=== PATIENT | male | born 1960 | race Caucasian/White ===

== ENCOUNTER 2016-07-21 05:34 | Inpatient (IN) | payer OTHER ==
[~2016-07-21] VITALS: Ht 167.6 cm; Wt 83.9 kg
[2016-07-21] MEDS ORDERED: LACTATED RINGERS 1,000 ML IV SCH (06:30)
[2016-07-21] MEDS ORDERED: GENTAMICIN SULF 40MG/ML 2ML VIAL ONE (07:14)
[2016-07-21] MEDS ORDERED: BACITRACIN ZINC 15GM TUBE TOP ONE (07:14)
[2016-07-21] MEDS ORDERED: TRIAMCINOLONE ACETONIDE 40MG/ML 1ML VIAL ONE (07:14)
[2016-07-21] MEDS ORDERED: DEXAMETHASONE 4MG/ML 1ML VIAL ONE (07:14)
[2016-07-21] MEDS ORDERED: BUPIVACAINE HCL/PF 0.5% (5MG/ML) 10ML ONE (07:15)
[2016-07-21] MEDS ORDERED: LIDOCAINE HCL 1% 20ML VIAL (Pyxis) INJ ONE ×2 (07:15→08:17)
[2016-07-21] MEDS ORDERED: MIDAZOLAM HCL 2 MG/2 ML VIAL ONE (08:16)
[2016-07-21] MEDS ORDERED: CEFAZOLIN SODIUM 1000MG/VIAL ONE (08:17)
[2016-07-21] MEDS ORDERED: PROPOFOL 200MG/20ML VIAL IV ONE (08:17)
[2016-07-21] MEDS ORDERED: FENTANYL CITRATE/PF 50MCG/ML 2ML VIAL ONE (08:25)
[2016-07-21] MEDS ORDERED: ONDANSETRON HCL 4MG/2ML VIAL ONE (08:29)
[2016-07-21] MEDS ORDERED: SODIUM CHLORIDE 0.9% 1,000 ML IV SCH (09:06)
[2016-07-21] MEDS ORDERED: HYDROMORPHONE HCL/PF 2MG/ML CPJ IV PRN (09:15)
[2016-07-21] MEDS ORDERED: ONDANSETRON HCL 4MG/2ML VIAL IV PRN ×2 (09:15→10:30)
[2016-07-21] MEDS ORDERED: PHENYLEPHRINE HCL 10 MG/ML 1ML (IV VIAL) IV ONE (09:21)
[2016-07-21] MEDS ORDERED: AMLO1CAP5 PO (10:29)
[2016-07-21] MEDS ORDERED: DIPHENHYDRAMINE 50MG/ML VIAL IV PRN (10:30)
[2016-07-21] MEDS ORDERED: GUAIFENESIN 200MG/10ML SUGAR FREE UDC PO PRN (10:30)
[2016-07-21] MEDS ORDERED: DOCUSATE SODIUM 100MG CAPSULE PO PRN (10:30)
[2016-07-21] MEDS ORDERED: IPRATROPIUM/ALBUTEROL 0.5-3(2.5)MG/3ML NEB INH PRN (10:30)
[2016-07-21] MEDS ORDERED: MAGNESIUM/ALUMINUM HYDROXIDE/SIMETHICONE 30ML UDC PO PRN (10:30)
[2016-07-21] MEDS ORDERED: CLONIDINE 0.1MG TABLET PO PRN (10:30)
[2016-07-21] MEDS ORDERED: HYDROCODONE/ACETAMINOPHEN 10/325MG TABLET PO PRN (10:30)
[2016-07-21] MEDS ORDERED: ACETAMINOPHEN 325MG TABLET PO PRN (10:30)
[2016-07-21 11:00] VITALS: BP 124/84
[2016-07-21 11:20] VITALS: BP 127/84
[2016-07-21] MEDS ORDERED: ENOXAPARIN 40MG/0.4ML SYR SUBCUT SCH (12:00)
[2016-07-21] MEDS: MULTIVITAMINS,THER W-MINERALS TABLET PO SCH (12:52)
[2016-07-21] MEDS: AMLODIPINE 5MG TABLET PO SCH (12:53)
[2016-07-21] MEDS: BENAZEPRIL 10MG TABLET PO SCH (12:53)
[2016-07-21] MEDS: CEFAZOLIN 1000MG PREMIX 50 ML IV SCH ×2 (14:00→22:14)
[2016-07-21] MEDS ORDERED: CEFAZOLIN SODIUM 1000MG/VIAL IV SCH (14:00)
[2016-07-21] MEDS: SODIUM CHLORIDE 0.9% INJ 3ML FLUSH IVF SCH ×2 (14:03→22:14)
[2016-07-21 16:00] VITALS: BP 108/70
[2016-07-21 20:00] VITALS: BP 120/82
[2016-07-22] VITALS: BP 133/77
[2016-07-22] MEDS: HYDROMORPHONE HCL/PF 2MG/ML CPJ IV PRN ×2 (00:05→13:50)
[2016-07-22 04:00] VITALS: BP 129/78
[2016-07-22] MEDS: CEFAZOLIN 1000MG PREMIX 50 ML IV SCH (05:40)
[2016-07-22] MEDS: SODIUM CHLORIDE 0.9% INJ 3ML FLUSH IVF SCH (05:41)
[2016-07-22 08:00] VITALS: BP 126/83
[2016-07-22] MEDS: BENAZEPRIL 10MG TABLET PO SCH (09:11)
[2016-07-22] MEDS: MULTIVITAMINS,THER W-MINERALS TABLET PO SCH (09:12)
[2016-07-22] MEDS: AMLODIPINE 5MG TABLET PO SCH (09:58)
[2016-07-22 12:00] VITALS: BP 126/74
[2016-07-22 16:00] VITALS: BP 118/71
[2016-07-22 17:22] VITALS: BP 119/65
== END 2016-07-22 18:10 | disposition home or self-care (01) | DRG 505 ==
LOC: OR 05:34 → 6EST 05:35
PROVIDERS: ADMIT Podiatrist Foot & Ankle Surgery; ATTEND Podiatrist Foot & Ankle Surgery
PROC: 0SH Lower Joints, Insertion (ICD-10-PCS; 2016-07-21)
PROC: 0SNN0ZZ Release Left Metatarsal-Phalangeal Joint, Open Approach (ICD-10-PCS; 2016-07-21)
PROC: 0QBR0ZZ Excision of Left Toe Phalanx, Open Approach (ICD-10-PCS; 2016-07-21)
PROC: 0QBP0ZZ Excision of Left Metatarsal, Open Approach (ICD-10-PCS; principal; 2016-07-21 07:30)
DX: M21.612 Bunion of left foot (principal); M20.40 Other hammer toe(s) (acquired), unspecified foot; M19.071 Primary osteoarthritis, right ankle and foot; M20.5X2 Other deformities of toe(s) (acquired), left foot; M24.575 Contracture, left foot
CPT/HCPCS: 73630; 88304; 88311; 97116; 97162; J0690; J1100; J1170; J1580; J2250; J2370; J2405; J2704; J3010; J3301; J3490; J7120

== ENCOUNTER 2022-03-12 15:44 | Emergency (ER) | payer OTHER ==
[~2022-03-12] VITALS: Ht 167.6 cm; Wt 80.0 kg
[~2022-03-12 15:44] MED LIST: AMLO1CAP5 PO
[2022-03-12 15:50] VITALS: BP 160/83
[2022-03-12] MEDS ORDERED: FLUORESCEIN SODIUM 1MG/STRIP BOTHEYE ONE (17:00)
[2022-03-12] MEDS ORDERED: TETRACAINE 0.5% OPHTH DROPS 4ML BOTHEYE ONE (17:00)
[2022-03-12] MEDS ORDERED: POLY30DR11 BOTHEYE (18:46)
== END 2022-03-12 18:53 | disposition home or self-care (01) ==
LOC: ER 15:44
DX: H57.89 Other specified disorders of eye and adnexa (principal); I10 Essential (primary) hypertension
CPT/HCPCS: 99283